=== PATIENT | male | born 1985 | race Two or more races ===

== ENCOUNTER 2020-10-28 02:06 | Emergency (ER) | payer OTHER ==
[2020-10-28 02:38] LABS: BASOPHIL 0.4 % (0-2); EOSINOPHIL 0.1 % (0-5); HCT 44.4 % (42.0-52.0); HGB 15.3 g/dl (13.2-18.0); LYMPHOCYTE 11.6 % (15-48); MCH 31.9 pg (25.0-31.0); MCHC 34.5 g/dL (32.0-36.0); MCV 92.5 fL (78.0-100.0); MONOCYTE 4.8 % (0-12); MPV 9.3 fL (6.0-9.5); NEUTROPHIL 82.8 % (41-80); NRBC 0; PLT 197 K/uL (150-400); RDW 12.1 % (11.5-14.0); WBC 7.1 K/uL (4.0-10.5)
[2020-10-28 02:55] LABS: ALBUMIN 4.2 g/dL (3.4-5.0); BILIRUBIN - TOTAL 0.6 mg/dL (0.2-1.0); BUN/CREAT RATIO (CALC) 11.1 RATIO; CREATININE 0.81 mg/dL (0.67-1.17); GLOBULIN (CALCULATION) 3.2 g/dL; POTASSIUM 3.7 mmol/L (3.5-5.1); TOTAL PROTEIN 7.4 g/dL (6.4-8.2)
[2020-10-28 04:19] LABS: BILIRUBIN NEGATIVE (NEGATIVE); BLOOD 3+ Ery/uL (NEGATIVE); CLARITY CLEAR (CLEAR); COLOR YELLOW (YELLOW); GLUCOSE (U) NORMAL (NORMAL); LEUKOCYTES NEGATIVE Leu/uL (NEGATIVE); NITRITE NEGATIVE (NEGATIVE); PROTEIN TRACE (LOW) mg/dL (NEGATIVE); UROBILINOGEN 0.2 mg/dL (0.2-1.0); pH 5.5 (5.0-9.0)
[2020-10-28 04:21] LABS: AMPHETAMINES NEGATIVE (NEGATIVE); BARBITURATES NEGATIVE (NEGATIVE); ECSTASY (MDMA) NEGATIVE (NEGATIVE); MARIJUANA (THC) NEGATIVE (NEGATIVE); METHADONE NEGATIVE (NEGATIVE); OPIATES NEGATIVE (NEGATIVE); OXYCODONE NEGATIVE (NEGATIVE)
== END 2020-10-28 06:00 | disposition other institution (70) ==
LOC: FER 02:06
PROVIDERS: Emergency Medicine Emergency Medical Services
DX: S02.0XXB Fracture of vault of skull, initial encounter for open fracture (principal); S06.4X0A Epidural hemorrhage without loss of consciousness, initial encounter; S41.011A Laceration without foreign body of right shoulder, initial encounter; F10.129 Alcohol abuse with intoxication, unspecified; F17.200 Nicotine dependence, unspecified, uncomplicated; Z23 Encounter for immunization; Y90.8 Blood alcohol level of 240 mg/100 ml or more; V44.5XXA Car driver injured in collision with heavy transport vehicle or bus in traffic accident, initial encounter; Y92.410 Unspecified street and highway as the place of occurrence of the external cause
CPT/HCPCS: 36415; 70450; 71260; 72125; 72128; 72131; 80053; 80305; 81001; 82150; 83605; 83690; 84484; 85025; 90471; 90715; G0480; J7030; Q9967